=== PATIENT | male | born 1980 | race Caucasian/White ===

== ENCOUNTER 2017-08-29 09:45 | Emergency (ER) | payer SELFPAY ==
[~2017-08-29] VITALS: Ht 154.9 cm; Wt 62.0 kg
[2017-08-29] MEDS ORDERED: HYDROCODONE/ACETAMINOPHEN 5-325 MG TABLET PO ONE (10:15)
[2017-08-29] MEDS ORDERED: BUPIVACAINE HCL/PF 0.25% 10 ML VIAL INJ ONE (10:15)
[2017-08-29] MEDS ORDERED: PERTUSS(ACELL),DIPH,TET VAC/PF 0.5 ML VIAL IM ONE (10:15)
[2017-08-29 12:53] VITALS: BP 148/76
== END 2017-08-29 12:55 | disposition home or self-care (01) ==
LOC: EMS 09:48
DX: S01.81XA Laceration without foreign body of other part of head, initial encounter (principal); W22.8XXA Striking against or struck by other objects, initial encounter; Y93.89 Activity, other specified; Y92.89 Other specified places as the place of occurrence of the external cause; Y99.8 Other external cause status
CPT/HCPCS: 12011; 90471; 90715; 99283; J3490

== ENCOUNTER 2017-08-31 15:28 | Emergency (ER) | payer SELFPAY ==
[~2017-08-31] VITALS: Ht 165.1 cm; Wt 65.0 kg
[2017-08-31 15:48] VITALS: BP 133/72
== END 2017-08-31 17:11 | disposition home or self-care (01) ==
LOC: EMS 15:30
DX: Z09 Encounter for follow-up examination after completed treatment for conditions other than malignant neoplasm (principal); S01.81XD Laceration without foreign body of other part of head, subsequent encounter; X58.XXXD Exposure to other specified factors, subsequent encounter
CPT/HCPCS: 99281

== ENCOUNTER 2017-09-04 12:09 | Emergency (ER) | payer SELFPAY ==
[~2017-09-04] VITALS: Ht 172.7 cm; Wt 62.0 kg
[2017-09-04 12:36] VITALS: BP 123/81
== END 2017-09-04 12:52 | disposition home or self-care (01) ==
LOC: EMS 12:12
DX: S01.81XD Laceration without foreign body of other part of head, subsequent encounter (principal); X58.XXXD Exposure to other specified factors, subsequent encounter
CPT/HCPCS: 99281

== ENCOUNTER 2018-02-25 08:35 | Emergency (ER) | payer MEDICAID ==
[~2018-02-25] VITALS: Ht 165.1 cm; Wt 64.5 kg
[2018-02-25 08:51] VITALS: BP 129/80
[2018-02-25] MEDS ORDERED: KETOROLAC TROMETHAMINE 60 MG/2 ML VIAL IM ONE (09:15)
[2018-02-25] MEDS ORDERED: METHOCARBAMOL 500 MG TABLET PO ONE (09:15)
== END 2018-02-25 09:44 | disposition home or self-care (01) ==
LOC: EMS 08:36
DX: S39.012A Strain of muscle, fascia and tendon of lower back, initial encounter (principal); G89.29 Other chronic pain; W01.0XXA Fall on same level from slipping, tripping and stumbling without subsequent striking against object, initial encounter; Y93.89 Activity, other specified; Y92.89 Other specified places as the place of occurrence of the external cause; Y99.8 Other external cause status
CPT/HCPCS: 96372; 99283; J1885

== ENCOUNTER 2018-02-26 15:08 | Emergency (ER) | payer MEDICAID ==
[~2018-02-26] VITALS: Ht 160 cm; Wt 64.5 kg
[2018-02-26 15:49] VITALS: BP 131/76
[2018-02-26] MEDS ORDERED: PredniSONE 20 MG TABLET PO ONE (16:45)
== END 2018-02-26 17:19 | disposition home or self-care (01) ==
LOC: EMS 15:09
DX: M54.42 Lumbago with sciatica, left side (principal)
CPT/HCPCS: 99283; J7512